=== PATIENT | male | born 1950 | race Caucasian/White ===

== ENCOUNTER 2022-06-24 06:54 | Emergency (ER) | payer MEDICARE, SELFPAY ==
[2022-06-24 06:57] VITALS: BP 144/86; PULSE 67; RESP 16; TEMP 36.6; O2SAT 98; BMI 27.6
[2022-06-24 07:32] VITALS: BP 152/89; PULSE 70; RESP 16; TEMP 36.1; O2SAT 98
--- NOTE | 2022-06-24 08:07 | ED.WOUNDLAC ---
HPI - Wound/Laceration General Chief Complaint: Wound/Laceration Stated Complaint: lac l index finger at home Time Seen by Provider: 06/24/22 07:49 Source: patient Mode of arrival: ambulatory Limitations: no limitations History of Present Illness HPI narrative: [age] year male came in for evaluation of left index finger laceration. Patient was cutting crab legs last night when he cut his left index finger, patient choose not to come to the hospital then, cleaned it and rested when he removes the dressing in the morning the laceration is still open and bleeding so he decided to come to the hospital. Patient is not on any anti coagulation therapy. Related Data Previous Rx's Medication Instructions Recorded cephalexin 250 mg capsule 250 mg PO TID 7 days #21 caps 06/24/22 Allergies Allergy/AdvReac Type Severity Reaction Status Date / Time No Known Allergies Allergy Verified 06/24/22 08:04 Review of Systems Review of Systems: All other systems are reviewed and are negative Constitutional: Reports as per HPI and Reports no additional constitutional complaints Eyes: Reports as per HPI and Reports no additional eye complaints Reports system reviewed and no additional complaints, except as documented Cardiovascular: Reports as per HPI and Reports no additional cardiovascular complaints Respiratory: Reports as per HPI and Reports no additional respiratory complaints Gastrointestinal: Reports as per HPI and Reports no additional gastrointestinal complaints Genitourinary: Reports no additional female genitourinary complaints Musculoskeletal: Reports no additional musculoskeletal complaints Skin/Breast: Reports system reviewed and no additional complaints, except as docu Psychiatric: Reports no additional psychiatric complaints Endocrine: Reports no additional endocrine complaints Hematologic/Lymphatic: Reports no additional hematologic/lymphatic complaints Allergic/Immunologic: Reports no additional allergic/immunologic complaints Reports system reviewed and no additional complaints, except as documented and Reports Abnormal speech present [facility] Social History Social History Advance Directives: Yes Advance Directives Information Provided: Yes Advance Directives on File: No Physical Exam Vital Signs: Vital Signs: Last Vital Signs Temp 97.0 F 06/24/22 07:32 Pulse 70 06/24/22 07:32 Resp 16 06/24/22 07:32 BP 152/89 H 06/24/22 07:32 Pulse Ox 98 06/24/22 07:32 O2 Del Method 06/24/22 07:32 BMI result Body Mass Index 27.6 Insert trauma vital signs Appearance: Alert. Oriented X3. No acute distress. Head: Normal external exam. Normocephalic. Atraumatic. No Chavez signs noted. No raccoon eyes noted Eyes: PERRLA. EOMI. Conjunctiva and sclera normal. Eyelids normal. ENT: TM's Normal. Pharynx normal. Uvula midline. Moist mucous membranes. No trismus noted. No drooling noted. No muffled voice noted. Neck: Normal inspection. Neck supple. FROM. No adenopathy. Thyroid Normal. No meningeal signs. No neck mass noted. CVS: Normal heart rate and rhythm. Heart sound normal. No murmurs noted. Pulses normal throughout. Respiratory: No respiratory distress. Painless inspiration. Breath sounds normal. No wheezes/rales/rhonchi noted. Chest nontender. No accessory muscle usage noted or decreased air movement noted. Abdomen: Soft and nontender. Bowel sounds normal in all 4 quadrants. No distention noted. No organomegaly noted. No visible injury noted. Back: No CVA tenderness. Full range of motion noted. Skin: Skin warm and dry. Normal skin color. Normal skin turgor. No rashes/lesions/lacerations noted. Extremities: No lower extremity edema. Extremities exhibit normal range of motion. Extremities nontender. Neuro: Oriented X 3. Cranial nerve exam: II-XII are grossly intact No motor deficit. No sensory deficit. Reflexes normal. Course Course Course Narrative: Left 5th finger laceration since last night 5 suture was placed to stop bleeding, start the patient on Keflex for 7 days her prophylactically. Medications Administered Discontinued Medications Generic Name Dose Route Start Last Admin Trade Name Rio PRN Reason Stop Dose Admin Lidocaine HCl 5 ml 06/24/22 08:04 06/24/22 08:14 Lidocaine Hcl 1 % Mpf 5 Ml Vial SUBCUT 06/24/22 08:05 Not Given ONCE ONE Lidocaine HCl 2 ml 06/24/22 08:07 06/24/22 08:14 Lidocaine Hcl 1 % Mpf 2 Ml Vial INFILTRATI 06/24/22 08:08 2 ml ONCE ONE Administration Procedures Laceration Laceration 1: Site: hand (Left 5th finger) Side (If applicable): left Size (cm): 5 Description: linear Depth: simple, single layer Local Anesthetic: lidocaine 1% Amount of anesthesia used (mL): 5 Pre-repair: wound explored and irrigated extensively Skin layer closed with: nylon Size (cm): 5-0 Number of sutures: 5 Technique: simple, interrupted Discharge Plan Discharge Clinical Impression: Finger laceration Patient Disposition: Home, Self-Care Instructions: Finger Laceration (ED) Additional Instructions: Return or see your doctor in 7-10 days for suture removal. Prescriptions: New cephalexin 250 mg capsule 250 mg PO TID 7 Days Qty: 21 0RF Referrals: Physician,Nonstaff [Primary Care Provider] -
[2022-06-24] MEDS: Lidocaine HCl 1 % MPF 2 ML VIAL INFILTRATI (08:14)
== END 2022-06-24 09:39 | disposition home or self-care (01) ==
PROVIDERS: Emergency Provider Emergency Medicine
DX: S61.211A Laceration without foreign body of left index finger without damage to nail, initial encounter (principal); W26.0XXA Contact with knife, initial encounter; Y93.G1 Activity, food preparation and clean up; Y92.030 Kitchen in apartment as the place of occurrence of the external cause; Y99.9 Unspecified external cause status
CPT/HCPCS: 12042; 99283; 99284